=== PATIENT | female | born 1965 | race Caucasian/White ===

== ENCOUNTER 2021-09-19 18:53 | Emergency (ER) | payer MEDICAID, OTHER ==
[~2021-09-19] VITALS: Ht 154.9 cm; Wt 68.5 kg
[2021-09-19 19:59] VITALS: BP 147/68
--- NOTE | 2021-09-19 20:49 | NUR ---
Blood for labwork drawn from right arm per wet process miller head assistant. Patient tolerated well.
[2021-09-19 21:00] LABS: BASOPHILS # (AUTO) 0.1 K/uL (0.00-0.22); BASOPHILS % (AUTO) 0.7 % (0.0-2.0); EOSINOPHILS # (AUTO) 0.1 K/uL (0-0.4); EOSINOPHILS % (AUTO) 0.5 % (0.0-4.0); HEMATOCRIT 42.9 % (36-48); HEMOGLOBIN 14.2 g/dL (12.0-16.0); MEAN CORPUSCULAR HEMOGLOBIN 30 pg (27-31); MEAN CORPUSCULAR HGB CONC 33 g/dL (33-37); MEAN CORPUSCULAR VOLUME 91.6 fL (80-94); MONOCYTES # (AUTO) 0.6 K/uL (0.8-1.0); MONOCYTES % (AUTO) 5.4 % (1.7-9.3); NEUTROPHILS # (AUTO) 8.5 K/uL (1.8-7.7); NEUTROPHILS % (AUTO) 75.4 % (42.2-75.2); PLATELET COUNT (AUTO) 310 K/uL (140-450); RED BLOOD CELL COUNT(AUTO) 4.69 MIL/uL (4.20-5.40); RED CELL DISTRIBUTION WIDTH 13.5 % (11.6-13.7); WHITE BLOOD COUNT (AUTO) 11.2 K/uL (4.8-10.8)
[2021-09-19 21:29] LABS: ANION GAP 11.4 (8-16); CARBON DIOXIDE 28.4 mmol/L (21-32); CREATININE 0.8 mg/dL (0.6-1.3); POTASSIUM 5.8 mmol/L (3.5-5.1)
--- NOTE | 2021-09-20 01:22 | NUR ---
Dr. King explained results and treatment plans.
[2021-09-20 01:37] VITALS: BP 147/91
--- NOTE | 2021-09-20 01:37 | NUR ---
Patient discharged with v/s stable. Written and verbal after care instructions given and explained. Patient verbalized understanding. Ambulatory with steady gait. All questions addressed prior to discharge. Advised to follow up with PMD.
== END 2021-09-20 01:37 | disposition home or self-care (01) ==
LOC: MED 18:53
DX: R55 Syncope and collapse (principal); E11.9 Type 2 diabetes mellitus without complications; I10 Essential (primary) hypertension
CPT/HCPCS: 36415; 80048; 85025; 93005; 99284

== ENCOUNTER 2021-11-22 21:03 | Emergency (ER) | payer OTHER ==
[~2021-11-22] VITALS: Ht 154.9 cm; Wt 71.0 kg
[2021-11-22 21:14] VITALS: BP 180/118
--- NOTE | 2021-11-22 21:22 | NUR ---
VERBAL ORDER FOR HEAD CT FROM [facility]
--- NOTE | 2021-11-22 21:23 | NUR ---
Patient taken to bed 4.
--- NOTE | 2021-11-22 21:25 | NUR ---
PT TAKEN TO CT VIA WC
--- NOTE | 2021-11-22 21:45 | NUR ---
REPORT GIVEN BY ILANA MUNSON, ASSUME CARE OF PT AT THIS TIME IN BED 4 BY CARMEL MUNSON, PT C/O RIGHT BACK HEAD PAIN AND RIGHT CHEST PAIN, PT SAYS WHEN SHE WOKE UP HER RIGHT EYE WAS SWOLLEN, PT HAS NOT TAKEN HER BP ,MEDS IN 1 MONTH BECAUSE SHE HAS NOT BEEN ABLE TO REFILL IT. HX-HTN, DM. PT PLACED ON ASSEMBLY LINE BRAZER.
--- NOTE | 2021-11-22 22:38 | NUR ---
Dr. Castle examining patient.
[2021-11-22] MEDS ORDERED: ENALAPRILAT 2.5 MG/2 ML VIAL IVP ONE (22:45)
[2021-11-22] MEDS ORDERED: hydrALAZINE 20 MG/ML VIAL IVP ONE (22:45)
[2021-11-22 23:11] LABS: ALBUMIN 2.8 g/dL (3.4-5.0); ANION GAP 11.1 (8-16); ASPARTATE AMINOTRANSFERASE 15 U/L (15-37); CARBON DIOXIDE 25.5 mmol/L (21-32); CHLORIDE 104 mmol/L (98-107); CREATININE 0.6 mg/dL (0.6-1.3); GFR ARICAN-AMERICAN 133 mL/min (>90); GLUCOSE 239 mg/dL (74-106); POTASSIUM 3.6 mmol/L (3.5-5.1); SODIUM SERUM 137 mmol/L (136-145); TOTAL BILIRUBIN 0.2 mg/dL (0.0-1.0); UREA NITROGEN, BLOOD 20 mg/dL (7-18)
--- NOTE | 2021-11-22 23:15 | NUR ---
RN AT BEDSIDE, PT FELLING DIZZY, BP 83/52 AND HR 42, PT DEVENDRAAW NOTIFIED AND T BEDSIDE, ORDER 1 L NS. PT ON WRAPPER SIZER.
--- NOTE | 2021-11-22 23:15 | NUR ---
CRASH CART AT BEDSIDE. IV FLUIDS OREDERED AND ADMINISTERED.
--- NOTE | 2021-11-22 23:18 | NUR ---
HR 28, Called Dr. Castle.
--- NOTE | 2021-11-22 23:19 | NUR ---
Dr. Castle examining patient.
--- NOTE | 2021-11-22 23:35 | NUR ---
Patient vomiting one episode, Dr. Castle verbal order Zofran 4 mg IV stat.
[2021-11-22] MEDS ORDERED: ONDANSETRON 4 MG/2 ML VIAL ONE (23:36)
[2021-11-22] MEDS ORDERED: ONDANSETRON 4 MG/2 ML VIAL IVP ONE (23:40)
--- NOTE | 2021-11-22 23:45 | NUR ---
PT GOWN AND BED LINEN CHANGED AND CLEAN APPLIED. PT STATES SHE IS FEELING BETTER. PT CONTINUES ON FORESTRY PILOT. DR RIZZO STATED TO BRING IN WITH PT FOR HER ANXIETY.
[2021-11-23] MEDS ORDERED: NACL 0.9% 500 ML IV ONE (00:20)
--- NOTE | 2021-11-23 00:30 | NUR ---
PT DENIES ANY CP AT PRESENT TIME
--- NOTE | 2021-11-23 01:00 | NUR ---
AT BEDSIDE, PT SPEAKING WITH HIM, VSS, PT STATES SHE FEELS BETTER, DENIES DIZZINESS OR CP AT PRESENT TIME
[2021-11-23] MEDS ORDERED: LISI20TA29 PO (01:14)
--- NOTE | 2021-11-23 01:25 | NUR ---
Patient discharged with v/s stable. Written and verbal after care instructions given and explained. Patient verbalized understanding. Wheel Chair Assisted with to car. All questions addressed prior to discharge. Advised to follow up with PMD.
[2021-11-23 01:26] VITALS: BP 136/70
== END 2021-11-23 01:25 | disposition home or self-care (01) ==
LOC: MED 21:03
DX: I10 Essential (primary) hypertension (principal); E11.9 Type 2 diabetes mellitus without complications; Z79.4 Long term (current) use of insulin; Z79.899 Other long term (current) drug therapy
CPT/HCPCS: 36415; 70450; 71045; 80053; 84484; 93005; 96361; 96374; 96375; 99285; J0360; J2405; J3490; J7030